=== PATIENT | male | born 1975 | race Caucasian/White ===

== ENCOUNTER → 2021-03-04 | Outpatient (CLI) | payer MEDICAID, OTHER ==
[~2021-03-04] MED LIST: BAMLANIVIMAB (EUA) 700 MG, ETESEVIMAB (EUA) 1,400 MG in SODIUM CHLORIDE 0.9% 50 ML IVPB ONE; SODIUM CHLORIDE 0.9% 50 ML IVPB ONE; SODIUM CHLORIDE 0.9% 500 ML 500 ML in EMPTY BAG 1 BAG IV PRN
[2021-03-04 14:08] VITALS: RESP 15; TEMP 98.5
[2021-03-04 14:50] VITALS: BP 134/72; PULSE 72
== END ==
LOC: PROCWHC3 13:39
PROVIDERS: ATTEND Family Medicine
DX: U07.1 COVID-19 (principal)